=== PATIENT | male | born 1960 | race Caucasian/White ===

== ENCOUNTER 2020-01-03 17:09 | Emergency (ER) | payer MEDICAID, SELFPAY ==
[2020-01-03 17:21] VITALS: BP 130/77; PULSE 55; RESP 16; TEMP 36.9; O2SAT 98; BMI 23.9
--- NOTE | 2020-01-03 17:28 | XR_ITS ---
PROCEDURE: XR WRIST RT MIN 3V CLINICAL INDICATION: FALL Posttraumatic pain COMPARISON: No exams were available for comparison FINDINGS: Comminuted fracture involves the distal aspect of the radius with both transverse and longitudinal component. Longitudinal component extends into the articular surface. There is mild dorsal angulation of the distal fracture fragment. There is 5 mm dorsal displacement of a dorsal fracture fragment and mild ulnar displacement also of the medial fracture fragment. No other fractures are evident. Severe osteoarthritic changes are present at the 1st metacarpal-carpal joint IMPRESSION: Comminuted distal radial fracture with intra-articular involvement Dictated by: Edy Reyes MD 01/04/2020 06:58 Edy Reyes MD in [place] 01/04/2020 06:58
--- NOTE | 2020-01-03 17:50 | XR_ITS ---
PROCEDURE: XR PELVIS 1-2V CLINICAL INDICATION: fall Posttraumatic pain COMPARISON: No exams were available for comparison TECHNIQUE: XR Pelvis AP View FINDINGS: No fracture or dislocation is evident. No significant degenerative change. No lytic or blastic change. IMPRESSION: No acute findings. Dictated by: Edy Reyes MD 01/04/2020 06:56 Edy Reyes MD in [place] 01/04/2020 06:56
--- NOTE | 2020-01-03 17:50 | XR_ITS ---
PROCEDURE: XR CHEST 2V CLINICAL HISTORY: fall Posttraumatic pain COMPARISON: No exams were available for comparison FINDINGS: The cardiomediastinal silhouette and pulmonary vascularity are within normal limits. The lungs are clear without infiltrates, suspicious nodules, or pleural effusions. No acute bony abnormalities. IMPRESSION: No acute findings. Dictated by: Edy Reyes MD 01/04/2020 06:56 Edy Reyes MD in [place] 01/04/2020 06:56
--- NOTE | 2020-01-03 17:56 | PC.NURSE ---
ICE APPLIED TO RT WRIST
--- NOTE | 2020-01-03 18:32 | HMH.EDFALL ---
ED Disposition Clinical Impression: Distal radius fracture, right Disposition: Home Health Service Condition on Discharge: Good Instructions: How to Prevent Falls Additional Instructions: Please call Dr. Salmeron's office in the morning for an appointment. Prescriptions: Ketorolac Tromethamine [Toradol 10mg tablet] 10 mg PO Q6H 5 Days #20 tab Prescription Printed Referrals: PCP,No [Primary Care Provider] - Suzie Oconnor MD [Physician] - - Critical Care Critical Care Time: No Attestation: On 01/03/20, the high probability of a clinically significant, sudden or life threatening deterioration of the following system(s) required my full and direct attention, intervention and personal management. The time I documented below is in addition to time spent performing reported procedures but includes the following listed in this critical care notation. Medical Decision Making - Medical Records Medical records reviewed: Yes: I reviewed the patient's medical records. - Lg Inquiry Pt receiving controlled substance: No Vital Signs: 01/03/20 17:21 Temperature 98.4 F Temperature Source Oral Pulse Rate [Radial] 55 L Respiratory Rate 16 Blood Pressure [Right Arm] 130/77 Blood Pressure Mean [Right Arm] 94 Blood Pressure Position [Right Arm] Sitting 02 Sat by Pulse Oximetry 98 Oxygen Delivery Method Room Air - Lab Data Lab results reviewed: Yes: I reviewed the patient's lab results. Orders (Tests/Meds): ORDERS Category Date Time Status Wrist XR right minimum 3 views [XR wrist RT min 3V] Exams 01/03/20 17:28 Taken Stat XR chest 2V Stat Exams 01/03/20 17:50 Taken XR pelvis 1-2V Stat Exams 01/03/20 17:50 Taken Urinalysis and Microscopic Stat Lab 01/03/20 17:29 Ordered - Radiology Data #1 Image(s): Wrist, Hand Preliminary Findings: Abnormal (Distal radial fracture) Medical Decision Narrative: We will have patient follow-up with Ortho tomorrow morning. Patient refused any opiates. Patient states he is not in any pain. Put patient in a thumb spica splint with Frank sling with elbow support. Fall HPI - General Chief Complaint: Fall Stated Complaint: possible fracture of right wrist Time Seen by Provider: 01/03/20 18:32 Mode of Arrival: Ambulatory Limitations: No Limitations Description of Symptoms (Recalled from ER Triage Doc. by RN): TO ED PER PVT CAR WITH C/O FALL OFF LADDER APPROX 6FT. LANDING ON CONCRETE BLOCKS. PT C/O PAIN TO RT WRIST, RT THUMB, ABRASION TO RT FLANK AREA. PT DENIES HITTING HEAD OR ANY LOC - History of Present Illness HPI Narrative: A 59-year-old gentleman presents the emergency department after a fall. Patient states he was up on a ladder changing 1 of his drains and when he went to grab the drain he noticed that the ladder became unstable and fell and landed on his right outstretched hand. Presently he stated when it happened he was complaining about acute wrist pain on the radial side however here in the ED with the arm abducted and the forearm flexed and with ice on his wrist his pain is 0 out of 10. Patient did describe the pain as a sharp sensation. At its crescendo the pain was 7 out of 10. Alleviating factors include rest and ice and exacerbating factors include movement. Patient denies any other trauma.Patient denies any recent cough or shortness of breath, patient denies any sore throat or headache, patient denies any loss of taste or smell, patient denies any malaise or fatigue, patient denies any abdominal pain nausea vomiting or diarrhea. - Related Data Previous Rx's Medication Instructions Recorded Ketorolac Tromethamine [Toradol 10 mg PO Q6H 5 Days #20 tab 01/03/20 10mg tablet] Allergies Allergy/AdvReac Type Severity Reaction Status Date / Time No Known Allergies Allergy Verified 01/03/20 17:27 [facility] History - Hepatitis A Screen Drug use history?: No High risk sexual behaviors?: No History of sexually tr
--- NOTE | 2020-01-03 18:48 | PC.NURSE ---
THUMB SPICA SPLINT APPLIED TO RT ARM. SLING APPLIED
[2020-01-03 18:49] VITALS: BP 132/74; PULSE 58; RESP 16; TEMP 36.6; O2SAT 98
== END 2020-01-03 18:51 | disposition home health service (06) ==
PROVIDERS: Emergency Provider Family Medicine
DX: S52.501A Unspecified fracture of the lower end of right radius, initial encounter for closed fracture (principal); W11.XXXA Fall on and from ladder, initial encounter; Y92.018 Other place in single-family (private) house as the place of occurrence of the external cause
CPT/HCPCS: 29125; 71046; 72170; 73110; 96372; 99283

== ENCOUNTER → 2020-01-14 10:27 | Outpatient (CLI) | payer MEDICAID, SELFPAY ==
[2020-01-14 11:02] LABS: Basophils % 0.5 % (0.1-2.0); Eosinophils # 0.2 K/mm3 (0.0-0.4); Eosinophils % 2.3 % (0.1-12.0); Hematocrit 44.7 % (42.0-52.0); Hemoglobin 14.9 g/dL (14.1-18.0); Lymphocytes % 25.3 % (10-50); Mean Corpuscular HGB Conc 33.3 g/dL (31.8-35.4); Mean Corpuscular Hemoglobin 31.6 pg (27.0-31.2); Mean Platelet Volume 9.8 fl (7.4-10.4); Monocytes # 0.5 K/mm3 (0.1-1.0); Monocytes % 6.4 % (1.7-9.3); Neutrophils % 65.5 % (37.0-80.0); Platelet Count 227 K/mm3 (142-424); Red Blood Count 4.71 M/mm3 (4.60-6.20); Red Cell Distribution Width 12.9 % (11.5-17.5); White Blood Count 7.7 K/mm3 (4.8-10.8)
[2020-01-14 11:55] LABS: Chloride 100 mmol/L (98-107); Potassium 4.7 mmoL/L (3.5-5.1); Sodium 138 mmol/L (136-145)
[2020-01-14 11:58] LABS: Alanine Aminotransferase 28 U/L (12-78); Albumin Level 4.4 g/dl (3.5-5.0); Albumin/Globulin Ratio 1.5 (1.1-1.8); Alkaline Phosphatase 93 U/L (38-126); Anion Gap 12.7 mEq/L (5-15); Aspartate Amino Transferase 23 U/L (17-59); Bilirubin,Total 0.4 mg/dl (0.2-1.3); Blood Urea Nitrogen 14 mg/dl (9-20); Calcium 9.9 mg/dl (8.4-10.2); Carbon Dioxide 30 mmol/L (22.0-30.0); Estimated Glomerular Filt Rate 99 ml/min (>60); GFR (African American) 120 ML/MIN (>60); Globulin 2.9 g/dL (1.3-3.2); Glucose 107 mg/dl (74-100); Total Protein,Serum 7.3 g/dl (6.3-8.2)
[2020-01-14 12:11] LABS: Coronavirus 19 IgG Antibody Negative (Negative); Coronavirus 19 IgM Antibody Negative (Negative)
== END ==
PROVIDERS: Visit Provider Orthopaedic Surgery
DX: S52.501A Unspecified fracture of the lower end of right radius, initial encounter for closed fracture (principal); Z01.84 Encounter for antibody response examination
CPT/HCPCS: 36415; 80053; 85025; 86328

== ENCOUNTER 2020-01-15 10:17 | Day surgery (SDC) | payer MEDICAID, SELFPAY ==
[2020-01-14 14:05] VITALS: BMI 23.9
[2020-01-15] VITALS (11 sets, daily range): BP systolic 113–164; BP diastolic 63–96; PULSE 58–68; RESP 16–18; TEMP 36.1–43; O2SAT 95–98
--- NOTE | 2020-01-15 13:34 | P.PN_ITS ---
[facility] Anesthesia Checklist - Patient Identification Patient Identification: Arm Band - Structural Data Admitted From: Home Planned Operative Procedure/s: ORIF right distal radius Consent for Planned Operative Procedure(s) Verified: Yes Verified Documents: Surgical Consent, History and Physical - NPO Status Verified Time NPO: 00:00 - Additional verifications Anesthesia Reactions: No Hx Blood Transfusions: No Blood Transfusion Reaction: No - Airway Assessment C-Spine Mobility Assessed: Yes (mp2) TMJ Mobility Assessed: Yes Dentition: Good Dentition - Neurological Assessment Level of Consciousness: Awake, Alert - Anesthesia Plan Anesthesia Risk discussed: Yes Anesthesia Plan: Verified ASA Class: II Anesthesia Type: General w/block (supraclavicular- Risks/benefits explained. Pt verbalizes understanding) [facility] History Medical History: Denies:: Cancer, Diabetes Mellitus Type 1, Diabetes Mellitus Type 2, Internal Pacemaker, MRSA, Seizures *Have you ever received a pneumonia vaccine?: No *Have you received a flu vaccine this season?: No Other Medical History: Denies: Blood Transfusion Reaction Anesthesia experience/problems:: nac Other Surgeries: Yes: Colonoscopy, Other. No: Pacemaker Amputation: No Fractures: Yes - *Social History Last grade of school completed: Some college Smoking Status: Never smoker Alcohol Intake: never Alcohol Intake Frequency:: 0-2 drinks per day Substance Use Type: marijuana *Occupational Status:: other Housing: other Household Members: other *Travel in the last 8 weeks: None Family Hx:: No significant family history
--- NOTE | 2020-01-15 13:36 | XR_ITS ---
PROCEDURE: XR WRIST RT 2V CLINICAL INDICATION: ORIF right wrist COMPARISON: No exams were available for comparison FINDINGS: Fluoroscopy time: 2 minutes and 24 seconds. Status post ORIF distal radial fracture. Volar Y shaped bone plate placed with good alignment and no evidence of significant displacement IMPRESSION: Good alignment status post ORIF distal radial fracture Dictated by: Edy Reyes MD 01/15/2020 14:39 Edy Reyes MD in [place] 01/15/2020 14:39
--- NOTE | 2020-01-15 13:51 | XR_ITS ---
PROCEDURE: XR WRIST RT MIN 3V CLINICAL INDICATION: s/p ORIF right distal radius fx Follow-up fracture COMPARISON: CR XR WRIST RT MIN 3V from 01/03/2020 FINDINGS: Studies obtained through a cast. There is a volar bone plate along the distal aspect of the radius. The lateral view is somewhat oblique. There does appear to be good alignment of the distal fracture fragments however with no significant displacement. IMPRESSION: Status post ORIF distal radial fracture with good alignment Dictated by: Edy Reyes MD 01/15/2020 14:30 Edy Reyes MD in [place] 01/15/2020 14:30
--- NOTE | 2020-01-15 14:11 | P.PN_ITS ---
[facility] Anesthesia Record Part I Intake, IV Amount: 1,500 Estimated blood loss (mL): 10 Urine output (mL): 0 Blood Pressure: 149/86 SaO2: 95 Pulse Rate: 63 Respiratory Rate: 16 Temperature: 97.4 F Patient is:: Drowsy, Stable Stable to PACU at:: 14:05
--- NOTE | 2020-01-15 14:23 | PC.NURSE ---
1423-radiology at bedside
--- NOTE | 2020-01-15 14:41 | PC.NURSE ---
1432-detailed report called to YUMIKO Juárez 1435-pt transported to post op via stretcher w/janey rails up and left in care of YUMIKO Juárez with bed locked in lowest position, vss,pt stable
--- NOTE | 2020-01-15 15:32 | HMH.ANESII ---
[facility] Anesthesia Record Part II Discharge Time: 14:35 Destination: Surgical Day Care (OP Surgery) PACU nurse assessment reviewed?: Yes Patient Condition:: Good Anesthesia Complications:: None Swallowing reflex intact?: Yes Cyanosis?: No Blood Pressure: 130/79 Pulse Rate: 61 Temperature: 97.7 F Mental Status: Alert & Oriented Pain level:: 0 Nausea and/or vomitting:: None Intake, IV Amount: 0
--- NOTE | 2020-01-15 21:05 | HMH.OPNOTE ---
Date of procedure: 01/15/20 Pre-op Diagnosis:: R distal radius fracture Post-op Diagnosis:: R distal radius fracture Procedure performed:: open reduction internal fixation (ORIF) R distal radius fracture Surgeon:: Suzie Oconnor MD Brewery Worker(s):: ROWAN Melara SUMMER NANNY:: Long Rashid Anesthesia: GETA, regional Estimated blood loss (mL): 25 Clinical Note:: 59-year-old gentleman who sustained an injury to the right wrist on 01/03/2020. He fell approximately 6 feet off a ladder and was transported by private car to the emergency department. He was diagnosed with a distal radius fracture and placed into a thumb spica splint. He denies any LOC during the fall and denies pain in any other location other than the right wrist. No open wounds, no numbness or tingling in the fingers of the right hand. He has history of hypertension, which he previously took medication for it. He has since been able to discontinue this medication and now is not taking any prescription medicines. He denies any other medical issues. He has had an injury to the right thumb in the past that was treated nonoperatively. He currently rates his pain a 2 out of 10. He does not smoke cigarettes and quit in the year 2012. He does occasionally drink alcohol and use marijuana. He complains of chronic right shoulder pain. I first saw him in the office on 01/07/2020 and significant swelling precluded surgery at that time. He elevated the arm frequently over the next week, and at his second office visit on 01/14/20 swelling had decreased to the point where fixation was possible. I discussed the risks of surgery with the patient, including but not limited to: bleeding, infection, wound healing complications such as incisional necrosis, nonunion, persistent pain despite surgery, postoperative stiffness, need for revision surgery, and risk of complex regional pain syndrome. The patient vocalized understanding and provided informed consent for the procedure. Operative findings:: IMPLANTS: [employer] Geminus volar distal radius plate, 3-hole standard-width right sided plate distal fixation: 2.3mm locking, threaded pegs (7) proximal/shaft fixation: 3.5mm cortical non-locking screw x2, locking x1 (3 total) Operative note:: The patient was identified in preoperative holding and the right arm signed by myself. Consent was verified with the patient and all questions answered. He was seen by anesthesia and supraclavicular nerve block administered to the right upper extremity. The patient was then transferred to the OR and placed supine on the operative table with a hand table under the right upper extremity. All bony prominences were well-padded and SCDs placed on bilateral lower extremities. 1 gram cefazolin was infused and general endotracheal anesthesia induced. Once the patient was asleep, his splint was removed and a nonsterile tourniquet placed on the upper right arm. The arm was then prepped and draped in the usual sterile fashion. Timeout was performed, identifying the correct patient, correct procedure, and correct site. The procedure was begun by bringing in the C-arm to confirm the site of the fracture in the right distal radius. The desired surgical incision was drawn over the volar aspect of the right wrist, centered over the flexor carpi radialis tendon and extending from the distal wrist flexion crease approximately 7 cm proximally. The arm was then exsanguinated with an Esmarch and the tourniquet inflated to 250 mmHg. The skin was incised with a sterile 15 blade and subcutaneous tissue bluntly dissected with tenotomy scissors. The subcutaneous tissue was spread until the FCR was identified. I incised the anterior FCR tendon sheath and retracted the tendon ulnarly with a ragnell retractor. I next incised the posterior tendon sheath and spread the underlying tissue, exposing the FPL tendon and the FDS to the index finger. These tendons were retracted ulnarly as well.
== END 2020-01-15 15:15 | disposition home or self-care (01) ==
PROVIDERS: Visit Provider Orthopaedic Surgery
PROC: (CPT 25607; principal; 2020-01-15 11:45)
DX: S52.551A Other extraarticular fracture of lower end of right radius, initial encounter for closed fracture (principal); W11.XXXA Fall on and from ladder, initial encounter
CPT/HCPCS: 25607; 73100; 73110; 76000; 96374; C1713; C1776; J2405

== ENCOUNTER → 2020-01-25 12:26 | Outpatient (CLI) | payer MEDICAID, SELFPAY ==
--- NOTE | 2020-01-25 12:35 | XR_ITS ---
PROCEDURE: XR WRIST RT MIN 3V CLINICAL INDICATION: sp ORIF rt wrist sx 01/15/2020 Follow-up fracture/ORIF COMPARISON: CR XR WRIST RT MIN 3V from 01/03/2020 CR XR WRIST RT MIN 3V from 01/15/2020 FINDINGS: There is a volar bone plate stabilizing comminuted distal radial fracture with good alignment. The cast has been removed. Osteoarthritic changes are present at the 1st metacarpal-carpal joint. Other findings:None. IMPRESSION: Good alignment status post ORIF comminuted distal radial fracture. Dictated by: Edy Reyes MD 01/25/2020 15:45 Edy Reyes MD in [place] 01/25/2020 15:45
== END ==
PROVIDERS: Visit Provider Orthopaedic Surgery
DX: S52.501A Unspecified fracture of the lower end of right radius, initial encounter for closed fracture (principal); Z09 Encounter for follow-up examination after completed treatment for conditions other than malignant neoplasm
CPT/HCPCS: 73110

== ENCOUNTER → 2020-02-15 14:20 | Outpatient (CLI) | payer MEDICAID, SELFPAY ==
--- NOTE | 2020-02-15 14:34 | XR_ITS ---
PROCEDURE: XR WRIST RT MIN 3V CLINICAL INDICATION: s/p ORIF DRF FU COMPARISON: CR XR WRIST RT MIN 3V from 01/03/2020 CR XR WRIST RT MIN 3V from 01/15/2020 CR XR WRIST RT MIN 3V from 01/25/2020 FINDINGS: Good alignment status post ORIF distal radial fracture with volar bone plate. No significant change . Mild osteoarthritic change 1st metacarpal-carpal joint Other findings:None. IMPRESSION: Postsurgical changes. No change with no acute finding Dictated by: Edy Reyes MD 02/15/2020 15:23 Edy Reyes MD in [place] 02/15/2020 15:23
== END ==
PROVIDERS: Visit Provider Orthopaedic Surgery
DX: S52.501A Unspecified fracture of the lower end of right radius, initial encounter for closed fracture (principal)
CPT/HCPCS: 73110

== ENCOUNTER 2020-02-15 15:28 | Outpatient (RCR) | payer MEDICAID, SELFPAY | END 2020-02-15 16:00 | disposition home or self-care (01) | LOC: OT 15:28 | PROVIDERS: Visit Provider Orthopaedic Surgery | DX: S52.501A Unspecified fracture of the lower end of right radius, initial encounter for closed fracture (principal) | CPT/HCPCS: 97763 ==

== ENCOUNTER → 2020-03-05 09:47 | Outpatient (CLI) | payer MEDICAID, SELFPAY ==
--- NOTE | 2020-03-05 09:50 | XR_ITS ---
PROCEDURE: XR WRIST RT MIN 3V CLINICAL INDICATION: RT DRF FU; out of brace Follow-up fracture/ORIF COMPARISON: CR XR WRIST RT MIN 3V from 01/03/2020 CR XR WRIST RT MIN 3V from 01/15/2020 CR XR WRIST RT MIN 3V from 01/25/2020 CR XR WRIST RT MIN 3V from 02/15/2020 FINDINGS: There is a volar bone plate present at the distal radius with multiple cortical screws stabilizing the comminuted distal radial fracture which is in good alignment. There are degenerative changes Other findings:Of the wrist. IMPRESSION: No change good alignment status post ORIF distal radial fracture. Dictated by: Edy Reyes MD 03/05/2020 12:55 dEy Reyes MD in [place] 03/05/2020 12:55
== END ==
PROVIDERS: Visit Provider Orthopaedic Surgery
DX: S52.501A Unspecified fracture of the lower end of right radius, initial encounter for closed fracture (principal)
CPT/HCPCS: 73110

== ENCOUNTER → 2020-04-01 09:03 | Outpatient (CLI) | payer MEDICAID, SELFPAY ==
--- NOTE | 2020-04-01 09:07 | XR_ITS ---
PROCEDURE: XR WRIST RT MIN 3V CLINICAL INDICATION: s/p ORIF R distal radius fracture Follow-up fracture COMPARISON: 03/05/2020 FINDINGS: Volar bone plate is present. Multiple cortical screws once again noted with good alignment of the fracture fragments. There are osteoarthritic changes at the 1st metacarpal-carpal joint with bony hypertrophy of the 1st metacarpophalangeal joint. Other findings:None. IMPRESSION: Good alignment status post ORIF distal radius Dictated by: Edy Reyes MD 04/01/2020 16:36 Edy Reyes MD in [place] 04/01/2020 16:36
== END ==
PROVIDERS: Visit Provider Orthopaedic Surgery
DX: S52.501A Unspecified fracture of the lower end of right radius, initial encounter for closed fracture (principal)
CPT/HCPCS: 73110

== ENCOUNTER → 2020-09-18 11:17 | Outpatient (CLI) | payer OTHER, SELFPAY ==
--- NOTE | 2020-09-18 11:29 | XR_ITS ---
PROCEDURE: XR WRIST RT MIN 3V CLINICAL INDICATION: RT wrist pain COMPARISON: CR XR WRIST RT MIN 3V from 01/25/2020 CR XR WRIST RT MIN 3V from 02/15/2020 CR XR WRIST RT MIN 3V from 03/05/2020 DX XR WRIST RT MIN 3V from 04/01/2020 FINDINGS: Status post ORIF of the distal radius with volar bone plate in place with healing distal radial fracture. Fracture line is barely visible dorsally. Fracture line is still visible along the central cortical surface of the distal radius. There are osteoarthritic changes at the 1st metacarpal-carpal joint with bony hypertrophy and minimal lateral subluxation of the 1st metacarpal. Other findings:None. IMPRESSION: Status post ORIF distal radius. Fracture line remains visible at the cortical surface centrally. Good alignment. Osteoarthritic changes 1st metacarpophalangeal joint Dictated by: Edy Reyes MD 09/18/2020 11:52 Edy Reyes MD in [place] 09/18/2020 11:52
== END ==
PROVIDERS: Visit Provider Orthopaedic Surgery
DX: S52.501A Unspecified fracture of the lower end of right radius, initial encounter for closed fracture (principal)
CPT/HCPCS: 73110